=== PATIENT | male | born 1980 | race Caucasian/White ===

== ENCOUNTER 2018-01-06 15:20 | Day surgery (SDC) | payer OTHER ==
--- NOTE | 2018-01-06 17:30 | ER Document Report ---
ED Medical Screen (RME) - General Chief Complaint: Abdominal Pain Stated Complaint: ABDOMINAL PAIN Time Seen by Provider: 01/06/18 17:29 Mode of Arrival: Ambulatory Information source: Patient Notes: 37 yo [place] former smoker pt c/o intermittent RUQ abd. pain with nauseam can't get comfortable since middle of october. Depends upon what I eat, worse with greasy food. Hernia repiar as . ETOH few beers on weekends. No drugs. TRAVEL OUTSIDE OF THE [place] IN LAST 30 DAYS: No - Related Data Allergies/Adverse Reactions: No Known Allergies Allergy (Unverified 01/06/18 15:24) Physical Exam - Vital signs Vitals: Temp Pulse Resp BP Pulse Ox 99.0 F 86 16 135/89 H 98 01/06/18 15:29 01/06/18 15:29 01/06/18 15:29 01/06/18 15:29 01/06/18 15:29 Course - Vital Signs Vital signs: Temp Pulse Resp BP Pulse Ox 99.0 F 86 16 135/89 H 98 01/06/18 15:29 01/06/18 15:29 01/06/18 15:29 01/06/18 15:29 01/06/18 15:29
[2018-01-06 18:05] LABS: ABSOLUTE BASOPHILS # (AUTO) 0.1 10^3/uL (0.0-0.2); ABSOLUTE EOSINOPHILS # (AUTO) 0.2 10^3/uL (0.0-0.6); ABSOLUTE LYMPHOCYTES (AUTO) 2.7 10^3/uL (0.5-4.7); ABSOLUTE MONOCYTES (AUTO) 0.7 10^3/uL (0.1-1.4); ABSOLUTE NEUT (AUTO) 5.1 10^3/uL (1.7-8.2); BASOPHILS % (AUTO) 1.1 % (0-2); EOSINOPHILS % (AUTO) 1.9 % (0-6); HEMATOCRIT 44.2 % (37.9-51.0); HEMOGLOBIN 15.6 g/dL (13.5-17.0); LYMPHOCYTES % (AUTO) 31.3 % (13-45); MEAN CORPUSCULAR HEMOGLOBIN 29.5 pg (27.0-33.4); MEAN CORPUSCULAR HGB CONC 35.2 g/dL (32.0-36.0); MEAN CORPUSCULAR VOLUME 84 fl (80-97); MONOCYTES % (AUTO) 7.4 % (3-13); PLATELET COUNT 377 10^3/uL (150-450); RED BLOOD COUNT 5.28 10^6/uL (4.35-5.55); RED CELL DISTRIBUTION WIDTH 12.8 % (11.5-14.0); SEGMENTED NEUTROPHILS % (AUTO) 58.3 % (42-78); TOTAL CELLS COUNTED % (AUTO) 100 %; WHITE BLOOD COUNT 8.8 10^3/uL (4.0-10.5)
[2018-01-06 18:08] LABS: APPEARANCE,URINE CLEAR; BILIRUBIN,URINE NEGATIVE (NEGATIVE); COLOR,URINE YELLOW; GLUCOSE, URINE NEGATIVE (NEGATIVE); KETONES,URINE NEGATIVE (NEGATIVE); LEUKOCYTE ESTERASE,URINE NEGATIVE (NEGATIVE); NITRITE,URINE NEGATIVE (NEGATIVE); PROTEIN,URINE NEGATIVE (NEGATIVE); URINE SPECIFIC GRAVITY 1.014
[2018-01-06 18:18] LABS: ALANINE AMINOTRANSFERASE 44 U/L (21-72); ALBUMIN 4.3 g/dL (3.5-5.0); ALKALINE PHOSPHATASE 51 U/L (38-126); ANION GAP 9 (5-19); ASPARTATE AMINO TRANSFERASE 30 U/L (17-59); BILIRUBIN,DIRECT 0.3 mg/dL (0.0-0.4); BILIRUBIN,TOTAL 0.6 mg/dL (0.2-1.3); BLOOD UREA NITROGEN 10 mg/dL (7-20); CALCIUM 9.5 mg/dL (8.4-10.2); CARBON DIOXIDE 30 mmol/L (22-30); CHLORIDE 103 mmol/L (98-107); GLUCOSE 82 mg/dL (75-110); LIPASE 161.6 U/L (23-300); POTASSIUM 4.4 mmol/L (3.6-5.0); SODIUM 142.3 mmol/L (137-145); TOTAL PROTEIN 7.3 g/dL (6.3-8.2)
[2018-01-06] MEDS ORDERED: OXYCODONE-ACETAMINOPHEN 5-325 MG TABLET PO ONE (20:15)
--- NOTE | 2018-01-06 20:18 | ER Document Report ---
ED GI/ - General Chief Complaint: Abdominal Pain Stated Complaint: ABDOMINAL PAIN Time Seen by Provider: 01/06/18 17:29 Mode of Arrival: Ambulatory Information source: Patient TRAVEL OUTSIDE OF THE [place] IN LAST 30 DAYS: No - HPI Patient complains to provider of: Abdominal pain Notes: 01/06/18 20:15 Patient is here with complaints of right upper abdominal pain. States pain is been present for the last few months. Does seem to be dependent upon what foods he eats. It is intermittent. He has called the [facility] and states that they gave him an appointment but it is not for over a month now. Pain seems to be getting somewhat worse. He denies fever. He denies nausea, vomiting or diarrhea. No rash. No injury. Said no prior abdominal surgeries. No chest pain or shortness of breath. No dysuria or hematuria. No flank pain. No rash. He has had no penile discharge. He denies any other complaints at this time. - Related Data Allergies/Adverse Reactions: No Known Allergies Allergy (Unverified 01/06/18 15:24) Past Medical History - General Information source: Patient - Social History Smoking Status: Current Every Day Smoker Family History: Reviewed & Not Pertinent Review of Systems - Review of Systems -: Yes All other systems reviewed and negative Physical Exam - Vital signs Vitals: Temp Pulse Resp BP Pulse Ox 99.0 F 86 16 135/89 H 98 01/06/18 15:29 01/06/18 15:29 01/06/18 15:29 01/06/18 15:29 01/06/18 15:29 - Notes Notes: GENERAL: alert, cooperative, nontoxic, no distress. HEAD: normocephalic, atraumatic EYES: conjunctiva pink without discharge, no external redness or swelling. EARS: no external swelling, no external redness NOSE: atraumatic, no external swelling MOUTH/THROAT: mucous membranes moist and pink, posterior pharynx without erythema, swelling, exudate. No trismus or drooling. NECK: soft, supple, full range of motion, no meningismus. CHEST: no distress, lungs clear and equal throughout. No wheezing, rales, rhonchi. CARDIAC: regular rate and rhythm, no murmur, normal capillary refill, normal pulses. No peripheral edema noted. ABDOMEN: Soft, tender in the right upper and right mid abdomen. No rebound tenderness. Mild voluntary guarding. No mass. BACK: full range of motion, no CVA tenderness. EXTREMITIES: full range of motion of all extremities. No redness, no swelling. NEURO: alert and oriented x 3, no focal deficits, full range of motion of all extremities. PYSCH: appropriate mood, affect. Patient is cooperative. SKIN: pink, warm, dry, no rash. Course - Re-evaluation Re-evalutation: 01/06/18 21:48 Patient is here with right upper quadrant pain for the last few months. Definitely food related. On exam he is some moderate right upper quadrant tenderness. Afebrile. Normal white count. Normal LFTs and lipase. Urine is normal. Ultrasounds shows cholelithiasis without signs of acute cholecystitis. I discussed the case with Dr. Roldan, he will see and evaluate the patient in the emergency department. 01/06/18 22:47 Patient is nontoxic-appearing with stable vitals. Here with complaints of right upper quadrant pain for the last several months. Worse after eating. On exam he has moderate right upper quadrant tenderness. LFTs and white count are normal. He is afebrile. Ultrasound shows cholelithiasis. The patient was seen and evaluated by Dr. Roldan, the surgeon information management officer. He will admit the patient for cholecystectomy tomorrow. - Vital Signs Vital signs: Temp Pulse Resp BP Pulse Ox 98.0 F 54 L 14 122/83 100 01/06/18 21:18 01/06/18 21:18 01/06/18 21:18 01/06/18 21:18 01/06/18 21:18 - Laboratory Result Diagrams: 01/06/18 17:50 01/06/18 17:50 Laboratory results interpreted by me: 01/06/18 17:50 Urine Urobilinogen 4.0 H - Diagnostic Test Radiology reviewed: Image reviewed, Reports reviewed - Ultrasound shows gallstones without signs of acute cholecystitis. Discharge - Discharge Clinical Impression: Biliary colic Cholelithiasis Qualifiers: Cholelithiasis location: gallbladder Cholecystitis presence: with cholecystitis Cholecystitis acuity: acute Biliary obstruction: without biliary obstruction Qualified Code(s): K80.00 - Calculus of gallbladder with acute cholecystitis without obstruction Condition: Stable Disposition: ADMITTED INPATIENT Admitting Provider: Surgicalist - Dr Roldan
--- NOTE | 2018-01-06 21:33 | RADIOLOGY REPORT (SQ) ---
EXAM DESCRIPTION: U/S ABDOMEN LIMITED W/O DOP COMPLETED DATE/TIME: 01/06/2018 8:45 pm REASON FOR STUDY: ruq pain, nausea COMPARISON: None. TECHNIQUE: Dynamic and static grayscale images acquired of the abdomen and recorded on PACS. Colteno erik selected color Doppler and spectral images recorded. LIMITATIONS: None. FINDINGS: PANCREAS: Not seen. LIVER: 14.2 cm. Normal echotexture. LIVER VASCULATURE: Normal directional flow of the main portal vein and hepatic veins. GALLBLADDER: Gallstones. No wall thickening or pericholecystic fluid. ULTRASOUND-DETECTED WU'S SIGN: Negative. INTRAHEPATIC DUCTS AND COMMON DUCT: CBD and intrahepatic ducts normal caliber. No filling defects. INFERIOR VENA CAVA: Not seen. AORTA: Proximal aorta was not seen. The mid and distal aorta are normal. RIGHT KIDNEY: Normal size 9.6 cm. Normal echogenicity. No solid or suspicious masses. No hydronephro sis. No calcifications. PERITONEAL AND RIGHT PLEURAL SPACE: No ascites or effusions. OTHER: No other significant findings. IMPRESSION: Cholelithiasis with no evidence of cholecystitis. TECHNICAL DOCUMENTATION: JOB ID: [id number] [employer]- All Rights Reserved Reading location - IP/workstation name: [email or web address]
--- NOTE | 2018-01-06 22:55 | PDOC H&P ---
History of Present Illness Admission Date/PCP: 01/06/18 Patient complains of: right upper quadrant pain History of Present Illness: QUINTEN DANGELO is a 37 year old male healthy with a c/o right upper quadrant pain, seen in the ER today. He underwent a gallbladder ultrasound demonstrating cholelithiasis. The patient reports episodes of severe RUQ painl nausea, and poor appetite. Social History Smoking Status: Unknown if Ever Smoked Family History Family History: Reviewed & Not Pertinent Parental Family History Reviewed: No Children Family History Reviewed: No Sibling(s) Family History Reviewed.: No Medication/Allergy Allergies/Adverse Reactions: No Known Allergies Allergy (Unverified 01/06/18 15:24) Physical Exam Vital Signs: Temp Pulse Resp BP Pulse Ox 98.0 F 54 L 14 122/83 100 01/06/18 21:18 01/06/18 21:18 01/06/18 21:18 01/06/18 21:18 01/06/18 21:18 Intake & Output 01/05/18 01/06/18 01/07/18 06:59 06:59 06:59 Weight 85.8 kg General appearance: PRESENT: no acute distress, cooperative Eye exam: PRESENT: EOMI Neck exam: PRESENT: full ROM Respiratory exam: PRESENT: clear to auscultation sabina Cardiovascular exam: PRESENT: RRR GI/Abdominal exam: PRESENT: normal bowel sounds, soft, tenderness - right upper quadrant Results Laboratory Results: 01/06/18 17:50 01/06/18 17:50 01/06/18 01/06/18 01/06/18 17:50 17:50 17:50 WBC 8.8 RBC 5.28 Hgb 15.6 Hct 44.2 MCV 84 MCH 29.5 MCHC 35.2 RDW 12.8 Plt Count 377 Seg Neutrophils % 58.3 Lymphocytes % 31.3 Monocytes % 7.4 Eosinophils % 1.9 Basophils % 1.1 Absolute Neutrophils 5.1 Absolute Lymphocytes 2.7 Absolute Monocytes 0.7 Absolute Eosinophils 0.2 Absolute Basophils 0.1 Sodium 142.3 Potassium 4.4 Chloride 103 Carbon Dioxide 30 Anion Gap 9 BUN 10 Creatinine 0.96 Est GFR ( Amer) > 60 Est GFR (Non-Af Amer) > 60 Glucose 82 Calcium 9.5 Total Bilirubin 0.6 AST 30 ALT 44 Alkaline Phosphatase 51 Total Protein 7.3 Albumin 4.3 Lipase 161.6 Urine Color YELLOW Urine Appearance CLEAR Urine pH 7.0 Ur Specific [place] 1.014 Urine Protein NEGATIVE Urine Glucose (UA) NEGATIVE Urine Ketones NEGATIVE Urine Blood NEGATIVE Urine Nitrite NEGATIVE Ur Leukocyte Esterase NEGATIVE Urine WBC (Auto) 1 Urine RBC (Auto) 0 Impressions: Abdomen Ultrasound 01/06/18 17:34 IMPRESSION: Cholelithiasis with no evidence of cholecystitis. Assessment & Plan - Diagnosis (1) Cholelithiasis Qualifiers: Cholelithiasis location: gallbladder Cholecystitis acuity: chronic Biliary obstruction: without biliary obstruction Is this a current diagnosis for this admission?: Yes - Plan Summary Plan Summary: A/ RUQ pain US gallbladder significant for cholelithiasis Symptomatic cholelithiasis normal blood work PE sinificant for RUQ pain on palpation P/ Admit overnight for IV hydration, pain control Laparoscopic cholecystectomy, possible open, possible cholangiogram. Procedure, risks, benefits, complications, including the possibility of loiver bleeding and or injury of the bile ducts requiring transfer to a tertiary center for open repair amari ibrahim explained to the patient. He understands the above, his questions were answered, and he decided to proceed.
[2018-01-07] MEDS ORDERED: NORMAL SALINE 1000 ML 1,000 ML IV PRN (01:05)
[2018-01-07] MEDS ORDERED: ONDANSETRON HCL INJ/PF 4 MG/2 ML SDV IV PRN ×2 (01:05→09:40)
[2018-01-07] MEDS ORDERED: MORPHINE SULFATE 10 MG/ML INJ IV PRN ×2 (01:06→09:40)
[2018-01-07] MEDS ORDERED: CEFOXITIN SODIUM 2 GM in DEXTROSE 5%-WATER 100 ML IV PRN (01:07)
[2018-01-07] MEDS ORDERED: BUPIVACAINE HCL 0.25 % INJ/PF (2.5 MG/1 ML) 30 ML VIAL ONE (08:21)
[2018-01-07] MEDS ORDERED: CEFAZOLIN INJ 1 GM VIAL ONE (08:50)
[2018-01-07] MEDS ORDERED: MIDAZOLAM 2 MG/2 ML INJ ONE (08:55)
[2018-01-07] MEDS ORDERED: FENTANYL CITRATE INJ/PF 250 MCG/5 ML AMPULE ONE (08:55)
[2018-01-07] MEDS ORDERED: FENTANYL CITRATE INJ/PF 100 MCG/2 ML AMPUL ONE (08:55)
[2018-01-07] MEDS ORDERED: MORPHINE SULFATE 10 MG/ML INJ ONE (08:56)
[2018-01-07] MEDS ORDERED: PROPOFOL INJ 200 MG/20 ML VIAL IV ONE (08:56)
[2018-01-07] MEDS ORDERED: OXYCODONE-ACETAMINOPHEN 5-325 MG TABLET PO PRN ×2 (09:40)
[2018-01-07] MEDS ORDERED: FENTANYL CITRATE INJ/PF 100 MCG/2 ML AMPUL IV PRN ×3 (09:40)
[2018-01-07] MEDS ORDERED: PROMETHAZINE HCL INJ 25 MG/1 ML VIAL IV PRN ×2 (09:40)
[2018-01-07] MEDS ORDERED: MEPERIDINE HCL/PF INJ 25 MG/1 ML DISP.SYRIN IV PRN (09:40)
[2018-01-07] MEDS ORDERED: DIPHENHYDRAMINE HCL 50 MG/ML VIAL IV PRN (09:40)
[2018-01-07] MEDS: FENTANYL CITRATE INJ/PF 100 MCG/2 ML AMPUL ONE ×2 (10:42→10:52)
--- NOTE | 2018-01-07 10:52 | PDOC PROGRESS REPORT ---
Subjective Progress Note for:: 01/07/18 Subjective:: 37-year-old male with acute cholecystitis. The patient still experiences pain in his right upper quadrant. His pain is constant. The patient denies chest pain, shortness of breath, fevers, chills, nausea, vomiting dizziness, orthostasis, fatigue. Reason For Visit: CHOLELITHIASIS,BILIARY COLIC Physical Exam Vital Signs: Temp Pulse Resp BP Pulse Ox 97.5 F 61 16 132/80 H 96 01/07/18 10:32 01/07/18 10:42 01/07/18 10:42 01/07/18 10:42 01/07/18 10:42 Intake & Output 01/06/18 01/07/18 01/08/18 06:59 06:59 06:59 Intake Total 2100 Output Total 1015 Balance 1085 General appearance: PRESENT: mild distress - Abdominal Eye exam: PRESENT: EOMI, PERRLA. ABSENT: scleral icterus Mouth exam: PRESENT: moist, neck supple Neck exam: ABSENT: lymphadenopathy, meningismus, tenderness, thyromegaly, tracheal deviation Respiratory exam: PRESENT: clear to auscultation sabina, unlabored. ABSENT: accessory muscle use, chest wall tenderness, wheezes Cardiovascular exam: PRESENT: RRR Pulses: PRESENT: normal radial pulses Vascular exam: PRESENT: normal capillary refill. ABSENT: pallor GI/Abdominal exam: PRESENT: Rajan's sign, tenderness - Right upper quadrant. ABSENT: distended Rectal exam: PRESENT: deferred Extremities exam: ABSENT: clubbing Musculoskeletal exam: PRESENT: normal inspection Neurological exam: PRESENT: alert, awake, oriented to person, oriented to place , oriented to time, oriented to situation, CN II-XII grossly intact. ABSENT: motor sensory deficit Psychiatric exam: ABSENT: agitated, anxious, depressed Skin exam: ABSENT: cyanosis, erythema Results Impressions: Abdomen Ultrasound 01/06/18 17:34 IMPRESSION: Cholelithiasis with no evidence of cholecystitis. Assessment & Plan - Plan Summary Plan Summary: This is a 37-year-old male with acute cholecystitis. I have offered him operative therapy, and he has agreed. Risks/benefits discussed, informed consent obtained, and all questions answered.
[2018-01-07] MEDS ORDERED: KETOROLAC TROMETHAMINE INJ/PF 30 MG/1 ML SDV ONE (11:05)
--- NOTE | 2018-01-07 11:09 | Operative Report ---
Nonrecallable Operative Report DATE OF SURGERY: 01/07/18 PREOPERATIVE DIAGNOSIS: Acute cholecystitis POSTOPERATIVE DIAGNOSIS: Same as above OPERATION: Laparoscopic cholecystectomy SURGEON: ASHISH TONG ANESTHESIA: GA TISSUE REMOVED OR ALTERED: Gallbladder COMPLICATIONS: None apparent ESTIMATED BLOOD LOSS: Minimal PROCEDURE: Drains/implants: None. Procedure in detail: After informed consent was obtained, the patient was brought to the operating room and laid in the supine position. The area of the abdomen was prepped and draped in a normal sterile fashion. A supraumbilical incision was created with a 15 blade scalpel. Dissection was carried through the subcutaneous tissue using blunt dissection. The cicatrix was identified, grasped with a Grace clamp, and retracted upwards. The linea alba fascia was incised sharply. The abdomen was entered sharply. The balloon trocar was inserted, and pneumoperitoneum was achieved. Next a 5 mm subxiphoid trocar was placed under direct laparoscopic visualization. 2 more 5 mm trochars were placed in the right upper quadrant in similar fashion. Atraumatic graspers were placed the 5 mm ports. The gallbladder was retracted cephalad and laterally. Dissection was begun in the triangle of [place]. The cystic duct and artery were fully visualized and skeletonized, seeing the liver through the triangle. Once the critical view of safety was obtained, the cystic duct and cystic artery were clipped and cut with laparoscopic instruments. The gallbladder was removed from the liver using Bovie electrocautery. The gallbladder was placed into an Endo Catch bag and pulled out through the umbilicus. The camera was reinserted, and the hilum was inspected. The hilum was found to be free of any leakage of blood or bile. The abdomen was copiously irrigated and suctioned until the effluent was clear. The 5 mm trochars were removed under direct laparoscopic visualization. The supraumbilical trocar was removed, and pneumoperitoneum was relieved. The supraumbilical fascia was closed using 0 Vicryl suture in [id number] fashion. The overlying skin was closed using 4-0 Vicryl Rapide suture in subcuticular fashion. All sponge, instrument, and needle counts were correct 2. Condition: Stable.
[2018-01-07] MEDS ORDERED: HYDROMORPHONE HCL INJ/PF 2 MG/ML AMPULE ONE (11:16)
[2018-01-07] MEDS ORDERED: HYDROCODONE/ACETAMINOPHEN 10-325 MG TABLET PO PRN (12:07)
[2018-01-07] MEDS ORDERED: SUCCINYLCHOLINE CHLORIDE INJ 200 MG/10 ML VIAL ONE (13:28)
[2018-01-07] MEDS ORDERED: NEOSTIGMINE METHYLSULFATE 10 MG/10 ML VIAL ONE (13:28)
[2018-01-07] MEDS ORDERED: GLYCOPYRROLATE 1 MG/5 ML SYRINGE ONE (13:28)
[2018-01-07] MEDS ORDERED: LIDOCAINE 2% INJ-PF (20 MG/ML) 2 ML AMPUL ONE (13:28)
[2018-01-07] MEDS ORDERED: VECURONIUM BROMIDE INJ 10 MG VIAL IV ONE (13:28)
[2018-01-07] MEDS ORDERED: ONDANSETRON HCL INJ/PF 4 MG/2 ML SDV ONE (13:28)
[2018-01-07] MEDS ORDERED: DEXAMETHASONE SOD PHOSPHATE INJ 4 MG/1 ML VIAL ONE (13:28)
--- NOTE | 2018-01-07 15:41 | PDOC DISCHARGE SUMMARY ---
General - Admit/Disc Date/PCP Admission Date/Primary Care Provider: 01/06/18 23:03 Discharge Date: 01/07/18 - Additional Information Resuscitation Status: Full Code Discharge Diet: As Tolerated Discharge Activity: No Lifting Over 10 Pounds Prescriptions: Hydrocodone/Acetaminophen [[place] 10-325 mg Tablet] 1 tab PO Q4HP PRN #30 tablet PRN Reason: Home Medications: Dextroamphetamine/Amphetamine [Adderall 10 mg Tablet] 10 mg PO DAILYP PRN Hydrocodone/Acetaminophen [[place] 10-325 mg Tablet] 1 tab PO Q4HP PRN #30 tablet 01/07/18 Zolmitriptan [Zomig] 2.5 mg PO BIDP PRN 01/07/18 History of Present Illness History of Present Illness: QUINTEN DANGELO is a 37 year old male admitted with right upper quadrant pain. He was tender to palpation and thought to have acute cholecystitis. He was admitted and started on abx. Hospital Course Hospital Course: The pt was taken to the OR on 01/07/18 for laparoscopic cholecystectomy. The pt did well. He was taken to the floor in stable condition. Later the day of surgery, he was ambulating, tolerating a diet, and had reached maximal hospital benefit. At this time he was fit for discharge. Physical Exam Vital Signs: Temp Pulse Resp BP Pulse Ox 97.5 F 60 16 128/85 H 97 01/07/18 14:48 01/07/18 14:48 01/07/18 14:48 01/07/18 14:48 01/07/18 14:48 Intake & Output 01/06/18 01/07/18 01/08/18 06:59 06:59 06:59 Intake Total 2275 Output Total 1015 Balance 1260 Results Impressions: Abdomen Ultrasound 01/06/18 17:34 IMPRESSION: Cholelithiasis with no evidence of cholecystitis. Qualifiers - * PATIENT BEING DISCHARGED WITH ANY OF THE FOLLOWING DIAGNOSIS: No Plan Time Spent: Less than 30 Minutes
[2018-01-07 16:02] VITALS: BP 124/82
== END 2018-01-07 16:04 | disposition home or self-care (01) ==
LOC: ER 15:20 → UNDOADMIN 23:03 → EH 23:03 → OROUT 01-07 00:40 → 2N 01-07 00:42 → EH 01-07 00:42 → UNDODISIN 01-07 16:04 → OROUT 01-07 16:04
PROVIDERS: ATTEND Surgery
DX: K80.10 Calculus of gallbladder with chronic cholecystitis without obstruction (principal); Z79.899 Other long term (current) drug therapy; F90.9 Attention-deficit hyperactivity disorder, unspecified type
CPT/HCPCS: 99285; 36415; 83690; 85025; 80053; 81001; 88304 ×2; 76705; 47562; J2250; J1100; J0694; J3010 ×2; J3490 ×3; J1885; J1170; J0330; J2405; J7030; J2704; 790; J0690; J2270